=== PATIENT | male | born 1995 | race Caucasian/White ===

== ENCOUNTER 2020-10-26 17:25 | Emergency (ER) | payer OTHER ==
[~2020-10-26] VITALS: Ht 175.3 cm; Wt 89.6 kg
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
[2020-10-26 18:11] LABS: BASO # 0.1 x10^3/uL (0.0-0.2); BASO % 1 % (0-3); EOS # 0.5 x10^3/uL (0.0-0.7); EOS % 3 % (0-3); HEMATOCRIT 46.6 % (39.0-53.0); HEMOGLOBIN 15.6 g/dL (13.0-17.5); LYMPH # 2.5 x10^3/uL (1.0-4.8); LYMPH % 14 % (24-48); MEAN CORPUSCULAR HEMOGLOBIN 29 pg (25-35); MEAN CORPUSCULAR HGB CONC 34 g/dL (31-37); MEAN CORPUSCULAR VOLUME 88 fL (79-100); MONO # 1.4 x10^3/uL (0.0-1.1); MONO % 8 % (0-9); NEUT # 13.6 x10^3uL (1.8-7.7); NEUT % 75 % (31-73); PLATELET COUNT 348 x10^3/uL (140-400); RED BLOOD COUNT 5.31 x10^6/uL (4.30-5.70); RED CELL DISTRIBUTION WIDTH 13.3 % (11.5-14.5); WHITE BLOOD COUNT 18.1 x10^3/uL (4.0-11.0)
[2020-10-26] MEDS ORDERED: IV RINGERS SOLUTION,LACTATED 1,000 ML IV SCH (18:15)
[2020-10-26] MEDS ORDERED: ASPIRIN CHEWABLE 81 MG TABLET. PO ONE (18:15)
[2020-10-26 18:26] VITALS: BP 137/73
--- NOTE | 2020-10-26 18:30 | RAD ---
INDICATION: Reason: CP / Spl. Instructions: / History: COMPARISON: None. FINDINGS: Single view of chest obtained. No focal airspace consolidation. Cardiomediastinal contour unremarkable. No acute osseous abnormality. IMPRESSION: * No focal airspace consolidation or edema. Electronically signed by: Oscar Hooper MD (10/26/2020 6:28 PM) [id number]
--- NOTE | 2020-10-26 18:35 | RAD ---
INDICATION: Reason: cp / Spl. Instructions: / History: COMPARISON: October 26, 2020 FINDINGS: Single view of chest obtained. No focal airspace consolidation. Cardiomediastinal contour unremarkable. No acute osseous abnormality. IMPRESSION: * No focal airspace consolidation or edema. Electronically signed by: Oscar Hooper MD (10/26/2020 6:33 PM) [id number]
[2020-10-26] MEDS ORDERED: ACETAMINOPHEN 500 MG TABLET PO ONE (18:45)
[2020-10-26 18:47] LABS: ALBUMIN 4.4 g/dL (3.4-5.0); DIRECT BILIRUBIN 0.2 mg/dL (0.0-0.2); MAGNESIUM 2.6 mg/dL (1.8-2.4); TOTAL BILIRUBIN 0.6 mg/dL (0.2-1.0)
[2020-10-26 18:54] LABS: CALCIUM 9.2 mg/dL (8.5-10.1); GFR 89.6; POTASSIUM 3.8 mmol/L (3.5-5.1)
[2020-10-26 18:54] LABS: % BANDS 1 % (0-9); % EOS 5 % (0-5); % LYMPHS 19 % (24-48); % MONOS 6 % (0-10); % SEGS 69 % (35-66)
[2020-10-26 18:55] LABS: PLT ESTIMATE ADEQUATE (ADEQUATE)
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
--- NOTE | 2020-10-26 19:50 | RAD ---
Exam: Right hand 3 views INDICATION: Injury TECHNIQUE: Frontal, lateral oblique views of the right hand Comparisons: None FINDINGS: Bone mineralization is normal. No acute or healed fractures. Soft tissues are unremarkable. Joint spa srikanth are well-maintained. IMPRESSION: No acute osseous abnormality Electronically signed by: Katarina Keating MD (10/26/2020 7:47 PM) [facility]
[2020-10-26] MEDS ORDERED: IV RINGERS SOLUTION,LACTATED 1,000 ML IV ONE (20:15)
[2020-10-26 21:09] LABS: BILIRUBIN,URINE NEG (NEG); CLARITY,URINE CLOUDY; COLOR,URINE AMBER; GLUCOSE,URINE NEG (NEG); NITRITE,URINE NEG (NEG); UROBILINOGEN,URINE 0.2 mg/dL (0.2 mg/dL)
[2020-10-26 21:10] LABS: AMORPHOUS SEDIMENT,UR PRESENT /HPF; BACTERIA,URINE FEW /HPF (0-FEW); HYALINE CASTS, URINE OCC /HPF; SQUAMOUS EPITHELIAL CELL,UR OCC /LPF; WBC,URINE RARE /HPF (0-4)
[2020-10-26 21:12] LABS: BARBITURATES NEG (NEG); BENZODIAZEPINES NEG (NEG); CANNABINOIDS POS (NEG); COCAINE NEG (NEG); METHADONE NEG (NEG); OPIATES NEG (NEG); PHENCYCLIDINE NEG (NEG)
[2020-10-26 21:15] LABS: AMPHETAMINE/METHAMPHETAMINE POS (NEG)
--- NOTE | 2020-10-27 00:40 | EKG ---
[address] [address] Test Date: 2020-10-26 Test Time: 20:27:01 Pat Name: TK FRYE Department: Room: Gender: M Business Affairs Manager: : 1995 Requested By: JOCELYNN PEGUERO Order Number: [id number] Reading MD: Measurements Intervals [place] Rate: 88 P: 54 ID: [id number] QRS: 6 QRSD: 88 T: 27 QT: 352 QTc: 429 Interpretive Statements SINUS RHYTHM LEFT ATRIAL ABNORMALITY INCOMPLETE RIGHT BUNDLE BRANCH BLOCK ABNORMAL ECG RI6.02 No previous ECG available for comparison
--- NOTE | 2020-10-27 00:41 | EKG ---
[address] [address] Test Date: 2020-10-26 Test Time: 17:27:23 Pat Name: TK FRYE Department: Room: Gender: M Maintenance Shop Technician: : 1995 Requested By: ELIAS WOODS Order Number: [id number] Reading MD: Measurements Intervals [place] Rate: 124 P: 51 [place]: 134 QRS: -4 QRSD: 78 T: 29 QT: 290 QTc: 420 Interpretive Statements SINUS TACHYCARDIA LEFT ATRIAL ABNORMALITY LEFTWARD AXIS INCOMPLETE RIGHT BUNDLE BRANCH BLOCK ABNORMAL ECG RI6.02 No previous ECG available for comparison
== END 2020-10-26 23:27 ==
LOC: EEVIPCON 17:25 → ER 17:25
DX: S31.153A Open bite of abdominal wall, right lower quadrant without penetration into peritoneal cavity, initial encounter (principal); S00.83XA Contusion of other part of head, initial encounter; S40.011A Contusion of right shoulder, initial encounter; S60.221A Contusion of right hand, initial encounter; D72.829 Elevated white blood cell count, unspecified; B34.9 Viral infection, unspecified; F41.9 Anxiety disorder, unspecified; F17.210 Nicotine dependence, cigarettes, uncomplicated; Y04.1XXA Assault by human bite, initial encounter; Y93.89 Activity, other specified; Y92.89 Other specified places as the place of occurrence of the external cause; Y99.8 Other external cause status
CPT/HCPCS: 36415; 70450; 70486; 71045; 72125; 73130; 80048; 80076; 80307; 81001; 83690; 83735; 84443; 84484; 85007; 85025; 93005; 96360; 99285; C9803; G0480; J7120; U0003